=== PATIENT | male | born 1965 | race Caucasian/White ===

== ENCOUNTER 2018-04-24 01:13 | Emergency (ER) | payer MEDICAID ==
[~2018-04-24] VITALS: Ht 175.3 cm; Wt 72.7 kg
[~2018-04-24 01:13] MED LIST: ADVAIR 250/501 DISK INH; AMITRIPTYLINE H50 MG PO; DUONEB 2.5-0.5 M3 ML UPD; INSPIRATION ELI1 PK1 INH; LEVAQUIN500 MG PO; PREDNISONE20 MG; PREDNISONE20 MG PO; PROTONIX40 MG PO
[2018-04-24 01:15] VITALS: Ht 175.3 cm; Wt 72.7 kg
[2018-04-24] MEDS ORDERED: LIPITOR80 MG PO (01:16)
[2018-04-24] MEDS ORDERED: PROVENTIL/2.5 MG/3 M INH (01:16)
[2018-04-24] MEDS ORDERED: BENTYL10 MG PO (01:17)
[2018-04-24] MEDS ORDERED: COREG6.25 MG PO (01:17)
[2018-04-24] MEDS ORDERED: ZETIA10 MG PO (01:17)
[2018-04-24] MEDS ORDERED: DICLOFENAC SODI50 MG PO ×2 (01:17→01:19)
[2018-04-24] MEDS ORDERED: SPIRIVA18 MCG INH (01:18)
[2018-04-24 01:47] LABS: BASOPHILS 0.5 % (0-2); EOSINOPHILS 2.6 % (0-7); HEMATOCRIT 41.5 % (42.0-54.0); HEMOGLOBIN 13.9 g/dL (13.5-17.5); IMMATURE GRANULOCYTES 0.1 % (0-5); LYMPHOCYTES 31.5 % (15-50); MCH 27.5 pg (26.0-34.0); MCHC 33.5 g/dL (31.0-37.0); MEAN PLATELET VOLUME 9.1 fL (7.4-10.4); MONOCYTES 10.2 % (2-11); NEUTROPHILS 55.1 % (40-80); PLATELET COUNT 282 10x3/uL (130-400); RBC 5.06 10x6/uL (4.20-6.10); RDW 16.2 % (11.5-14.5); WBC 8.4 10x3/uL (4.8-10.8)
[2018-04-24 02:07] LABS: ALBUMIN 3.4 g/dL (3.4-5.0); ALKALINE PHOSPHATASE 75 U/L (46-116); ALT (SGPT) 14 U/L (10-68); BILIRUBIN - TOTAL 0.34 mg/dL (0.2-1.3); CALC OSMOLALITY 278 mosm/kg (275-300); CALCIUM 9.1 mg/dL (8.5-10.1); CARBON DIOXIDE 24.7 mmol/L (21.0-32.0); CHLORIDE - SERUM 105 mmol/L (98-107); CREATININE - SERUM 0.7 mg/dL (0.6-1.3); GLUCOSE 98 mg/dL (74-106); LIPASE 106 U/L (73-393); POTASSIUM - SERUM 3.6 mmol/L (3.5-5.1); PROTEIN - SERUM 7.2 g/dL (6.4-8.2); SODIUM 141 mmol/L (136-145); UREA NITROGEN 6 mg/dL (7-18); eGFR NON AFRICAN AMERICAN > 90 mL/min (90-120)
[2018-04-24 02:08] LABS: TROPONIN-I < 0.017 ng/mL (0.000-0.060)
[2018-04-24 02:35] LABS: APPEARANCE HAZY (CLEAR); BILIRUBIN NEGATIVE (NEGATIVE); COLOR YELLOW (YELLOW); GLUCOSE NEGATIVE (NEGATIVE); KETONE NEGATIVE (NEGATIVE); NITRITE NEGATIVE (NEGATIVE); PROTEIN NEGATIVE (NEGATIVE); SPECIFIC GRAVITY 1.005 (1.005-1.020); UROBILINOGEN NORMAL (NORMAL)
[2018-04-24 03:23] VITALS: BP 134/79
== END 2018-04-24 03:24 | disposition home or self-care (01) ==
LOC: D.ER 01:13
PROVIDERS: Family Medicine
DX: R10.84 Generalized abdominal pain (principal); M54.5 Low back pain; F17.200 Nicotine dependence, unspecified, uncomplicated

== ENCOUNTER 2019-05-20 19:07 | Emergency (ER) | payer MEDICAID ==
[2018-04-24 01:15] VITALS: Ht 175.3 cm; Wt 75.0 kg
[~2019-05-20] VITALS: Ht 175.3 cm; Wt 75.0 kg
[~2019-05-20 19:07] MED LIST changes: +BENTYL10 MG PO; +COREG6.25 MG PO; +DICLOFENAC SODI50 MG PO; +LIPITOR80 MG PO; +PROVENTIL/2.5 MG/3 M INH; +SPIRIVA18 MCG INH; +ZETIA10 MG PO
[2019-05-20 19:13] VITALS: BP 152/73
== END 2019-05-20 20:16 | disposition left against medical advice (07) ==
LOC: D.ER 19:07
DX: R05 Cough (principal); J44.9 Chronic obstructive pulmonary disease, unspecified; F17.210 Nicotine dependence, cigarettes, uncomplicated